=== PATIENT | female | born 1965 | race African-American/Black ===

== ENCOUNTER 2025-09-06 17:47 | Emergency (ER) | payer BC, SELFPAY ==
[2025-09-06 17:51] VITALS: BP 160/106
[2025-09-06 18:07] LABS: Hematocrit 38.9 % (37.0-47.0); Hemoglobin 12.3 g/dL (12.0-16.0); Mean Corp Hgb Conc. 31.6 g/dL (33.0-37.0); Mean Corpuscular Volume 82.9 fL (81.0-99.0); Nucleated Red Blood Cells % 0 %; Platelet Count 236 10^3/uL (130-400); Red Cell Dist. Width 16.1 % (11.5-14.5)
[2025-09-06 18:22] LABS: ALT (SGPT) 35 U/L (0-35); AST (SGOT) 53 U/L (14-36); Albumin 4.4 g/dl (3.5-5.0); Alkaline Phosphatase 377 U/L (38-126); Blood Urea Nitrogen 9 mg/dl (7-17); Calcium 9.4 mg/dl (8.4-10.2); Carbon Dioxide 27 mmol/L (22-30); Chloride 101 mmol/L (98-107); Glucose 115 mg/dl (70-99); Lipase 42 U/L (23-300); Potassium 3.5 mmol/L (3.5-5.1); Sodium 134 mmol/L (135-145); Total Protein 9.1 g/dl (6.3-8.2); eGFR > 60.00
[2025-09-06 21:00] VITALS: BMI 34.2
--- NOTE | 2025-09-06 21:42 | ED.GENMED ---
History of Present Illness
General
Chief Complaint: Abdominal Symptoms
Time Seen by Provider: 09/06/25 21:27
History of Present Illness
History of Present Illness:
Patient is a 60-year-old female who presents to the emergency department with diffuse abdominal pain. States she has felt very bloated for the past 2 weeks. Endorses intermittent diffuse abdominal pain with nausea. Endorses constipation and
diarrhea. Nausea without vomiting. No fevers or chills.
Phy Exam
Physical Exam
Physical Exam:
GENERAL APPEARANCE: NAD, well developed/ well nourished
EYES lids/conjunctiva normal
EARS/NOSE/THROAT Mucous membranes moist, uvula midline without oral pharyngeal erythema, exudate or swelling
HEAD/NECK normocephalic atraumatic, neck is supple.
RESPIRATORY respiratory effort normal, speaks in full sentences, no accessory muscle use. Lungs clear to auscultation without rhonchi, wheezes, rales
CARDIAC Regular rate and rhythm, no edema.
ABDOMINAL Soft, mild diffuse tenderness
MUSCLES/EXTREMITIES No abnormal range of motion, no swelling.
SKIN Warm, pink and dry. No rashes
NEUROLOGICAL Speech is clear and appropriate. Normal level of consciousness. 5/5 strength in all extremities.
PSYCH Normal mood and affect. Judgement/competence is appropriate
Course
Orders/Labs/Results
Orders:
Orders
09/06/25 17:59
Complete Blood Count/With Diff Urgent
Comprehensive Metabolic Panel Urgent
Lipase Urgent
09/06/25 21:42
CT Abd/Pel (IV only)-DH only Urgent
Comment:
Reason For Exam: abdominal pain
09/06/25 21:58
0.9% Sodium Chloride 1000 ml [Nss] 1,000 ml IV BOLUS
Ondansetron Injectable [Zofran] 4 mg IV NOW STA
Abnormal Lab Results
09/06/25
17:59
MCH 26.2 L pg
(27.0-31.0)
MCHC 31.6 L g/dL
(33.0-37.0)
RDW 16.1 H %
(11.5-14.5)
MPV 11.7 H fL
(7.4-10.4)
Absolute Monos (auto) 0.8 H 10^3/uL
(0.1-0.6)
Sodium 134 L mmol/L
(135-145)
Glucose 115 H mg/dl
(70-99)
Total Bilirubin 1.9 H mg/dl
(0.2-1.3)
AST 53 H U/L
(14-36)
Alkaline Phosphatase 377 H U/L
(38-126)
Total Protein 9.1 H g/dl
(6.3-8.2)
09/06/25 17:59
09/06/25 17:59
Vital Signs
Initial and Last Documented VS:
Initial Vital Signs
Temp Pulse Resp BP Pulse Ox
98.0 F 91 16 160/106 98
09/06/25 17:51 09/06/25 17:51 09/06/25 17:51 09/06/25 17:51 09/06/25 17:51
Last Documented Vital Signs
Temp Pulse Resp BP Pulse Ox
98.0 F 53 16 146/102 96
09/06/25 17:51 09/07/25 00:18 09/07/25 00:18 09/07/25 00:18 09/07/25 00:18
*Pulse Oximetry
SaO2: 98
Oxygen Mode of Delivery: Room air
Patient hypoxic: no
*Critical Care Note
Total Time (30-74mins, 75-104mins- exclusive of procedures): Not Applicable
ED Attending Note
ED Attending Note
ED Attending Note:
patient with likely new diagnosis of pancreatic cancer with mets
no obstruction or emergent findings on CT
non peritoneal exam
message sent to oncologist [facility] foreman Dr Morrison to help expedite follow up
-
Portions of this chart may have been created with voice recognition software.� Occasional wrong word or��sound alike� substitutions may have occurred due to the inherent limitations of voice recognition software.
Discharge Plan
Departure
Patient Disposition: Home (Routine Discharge)
Date of Disposition: 09/06/25
Time of Disposition: 23:57
Patient with high blood pressure during this ER visit?: No
Discharge Problem:
Mass of pancreas, Hepatic lesion
Prescriptions:
No Action
alprazolam 1 mg Tablet
1 mg PO DAILY
metoprolol succinate 50 mg Tablet Extended Release 24 Hr
50 mg PO DAILY
famotidine 20 mg Tablet
20 mg PO BID
albuterol sulfate 90 mcg/actuation Hfa Aerosol Inhaler
2 puff INHALATION Q6H PRN (Reason: wheezing)
naproxen 500 mg Tablet
500 mg PO BID PRN (Reason: pain)
rosuvastatin 10 mg Tablet
10 mg PO DAILY
hydrochlorothiazide 12.5 mg Tablet
12.5 mg PO DAILY PRN (Reason: sewlling legs)
Referrals:
Rachana Howell DO [Family Provider, Family Practice]
Gerald Morrison MD [Active, Hematology / Oncology]
Activity Restrictions/Additional Instructions:
Please call Dr. Morrison in the morning for close outpatient follow up
Return to ER with new or worsening symptoms
Interventions
Interventions:
*Risk Screen - Suicide Last Done: 09/06/25 17:51
*General Assessment Last Done: 09/06/25 17:51
*Neglect/Abuse Screening Last Done: 09/06/25 17:51
*ED- Fall Risk Assessment Last Done: 09/06/25 20:52
*ED COVID-19 Vaccine History Last Done: 09/06/25 20:52
*ED Influenza Vaccine History Last Done: 09/06/25 20:52
*Nursing Disposition Last Done: 09/07/25 00:18
MT-Enryjb-Sxkmqghiyu Assessment Last Done: 09/06/25 20:52
Discharge Date and Time
Discharge Date/Time: 09/07/25 00:22
Print Language: CITIZ[place]
[2025-09-06] MEDS: NSS 1000 IV (22:11)
[2025-09-06] MEDS: ZOFRAN 4 MG IV (22:11)
[2025-09-07 00:18] VITALS: BP 146/102
== END 2025-09-07 00:22 | disposition home or self-care (01) ==
LOC: EMR 17:47
PROVIDERS: Emergency Medicine; EMERGENCY PHYSICIAN Emergency Medicine; FAMILY PHYSICIAN Family Medicine
DX: K76.9 Liver disease, unspecified (principal); K86.9 Disease of pancreas, unspecified
CPT/HCPCS: 96374; 96361; 99284; 74177; 80053; 83690; 85025; Q9967